=== PATIENT | female | born 1980 | race African-American/Black ===

== ENCOUNTER 2024-04-01 14:12 | Emergency (ER) | payer SELFPAY ==
[~2024-04-01] VITALS: Ht 157.5 cm; Wt 71.6 kg
[2024-04-01 14:19] VITALS: O2SAT 98
[2024-04-01] MEDS ORDERED: METH-653 MT (14:39)
[2024-04-01] MEDS ORDERED: IBUP-2029 MT (14:39)
[2024-04-01 14:47] VITALS: BP 126/86
[2024-04-01] MEDS: IBUPROFEN 600MG TABLET PO ONE (14:47)
[2024-04-01] MEDS ORDERED: CYCL10TA21 MT (14:50)
[2024-04-01] MEDS: METHOCARBAMOL 500MG TABLET PO ONE (14:51)
[2024-04-01 14:54] VITALS: PULSE 88; RESP 16; TEMP 36.39180; O2SAT 99
== END 2024-04-01 14:55 | disposition home or self-care (01) ==
LOC: ER 14:12
DX: S29.012A Strain of muscle and tendon of back wall of thorax, initial encounter (principal); M54.6 Pain in thoracic spine; F41.9 Anxiety disorder, unspecified; Z88.0 Allergy status to penicillin; Z98.51 Tubal ligation status; W06.XXXA Fall from bed, initial encounter; Y93.89 Activity, other specified; Y92.89 Other specified places as the place of occurrence of the external cause; Y99.8 Other external cause status
CPT/HCPCS: 99283